=== PATIENT | male | born 1950 | race Caucasian/White ===

== ENCOUNTER 2021-05-28 08:33 | Outpatient (CLI) | payer MEDICARE, SELFPAY | END 2021-05-28 08:34 | disposition home or self-care (01) | LOC: ANHBWCAUD 08:34 | PROVIDERS: PCP Family Medicine; Visit Provider Otolaryngology | DX: H72.91 Unspecified perforation of tympanic membrane, right ear (principal) | CPT/HCPCS: 92557; 92567 ==

== ENCOUNTER 2021-06-17 09:05 | Outpatient (CLI) | payer MEDICARE, SELFPAY ==
--- NOTE | 2021-06-17 09:30 | ECG_ITS ---
Measurements Intervals [place] Rate: 57 P: -7 [place]: 204 QRS: -49 QRSD: 106 T: 64 QT: 438 QTc: 430 Interpretive Statements SINUS BRADYCARDIA BORDERLINE AV CONDUCTION DELAY LEFT ANTERIOR FASCICULAR BLOCK POOR R WAVE PROGRESSION, CONSIDER ANTERIOR INFARCT INFERIOR INFARCT, AGE INDETERMINATE BORDERLINE ST-T WAVE ABNORMALITY- HIGH LATERAL LEADS BASELINE ARTIFACT- I, II, III ABNORMAL ECG Electronically Signed On 06-17-2021 9:54:56 CDT by Ryne Ramirez D.O.
[2021-06-17 09:53] LABS: Prothrombin Time 12.9 Seconds (11.1-14.7)
[2021-06-17 09:54] LABS: Partial Thromboplastin Time 27.5 SECONDS (22.3-36.8)
[2021-06-17 09:59] LABS: Anion Gap 7 mmol/L (8-16); Blood Urea Nitrogen 19 mg/dL (9-20); Calcium 9.1 mg/dL (8.4-10.2); Carbon Dioxide 29 mmol/L (22-30); Chloride 102 mmol/L (98-107); Estimated Glomerular Filt Rate 46; Glucose 96 mg/dL (65-110); Potassium 4.8 mmol/L (3.4-5.0); Sodium 138 mmol/L (137-145)
== END 2021-06-17 09:06 | disposition home or self-care (01) ==
LOC: ANHSURGERY 09:09
PROVIDERS: Anesthesiology; PCP Family Medicine; Visit Provider Otolaryngology
DX: E11.65 Type 2 diabetes mellitus with hyperglycemia (principal); N18.30 Chronic kidney disease, stage 3 unspecified; Z01.818 Encounter for other preprocedural examination; I45.9 Conduction disorder, unspecified; I44.4 Left anterior fascicular block
CPT/HCPCS: 36415; 80048; 85610; 85730; 93005

== ENCOUNTER 2021-06-23 00:56 | Day surgery (SDC) | payer MEDICARE, SELFPAY ==
[2021-06-15 12:39] VITALS: BMI 31.9
--- NOTE | 2021-06-22 05:34 | PM.HPGS ---
History of Present Illness History of Present Illness Consent: Risks, benefits, and alternatives have been discussed and questions answered. Patient agrees to proceed with procedure. 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 is episodes of drainage Review of Systems Review of Systems: All systems reviewed & are unremarkable except as noted in HPI and below PMFSH Past Medical History Medical History BMI 30.0-30.9,adult Chronic kidney disease, stage 3 (moderate) Coronary artery disease Hip pain, left 07/2015 REPLACED Type 2 diabetes mellitus with hyperglycemia Surgical History Surgical History Knee arthropathy (~01/2011) r KNEE REPLACEMENT Family History Family History Mother Hypertension Family history of diabetes mellitus in first degree relative Family history of coronary artery disease Family history of heart disease in male family member before age 55 Grandparent Hypertension Diabetes mellitus Father Family history of malignant neoplasm of stomach Family history of coronary artery disease Sibling Family history of coronary artery disease Carcinoma of colon Other Family history of arthritis Family history of mental disorder Social History Social History Smoking status: Never smoker Second hand tobacco smoke exposure: No Alcohol intake: current Alcohol use details: STATES MAYBE ONE DRINK A MONTH Substance use: never Substance use type: does not use Spiritual care concerns: No Meds Home Medications and Allergies Home Medications Medication Instructions Recorded Confirmed Type aspirin 81 mg tablet,delayed 81 mg PO DAILY 12/01/19 06/15/21 History release insulin aspart U-100 100 unit/mL 20 unit SUB-Q TID 12/01/19 06/15/21 History (3 mL) subcutaneous pen insulin glargine 100 unit/mL (3 30 unit SUB-Q HS ml 06/09/20 06/15/21 History mL) subcutaneous pen clopidogrel 75 mg tablet See Rx Instructions .ROUTE 10/31/20 06/15/21 Rx .COMPLEX #90 tablet carvedilol 6.25 mg tablet 6.25 mg PO Q12H #180 tablet 05/21/21 06/15/21 Rx insulin glargine 20 unit SUBCUT QAM 06/15/21 06/15/21 History rosuvastatin 20 mg PO HS 06/15/21 06/15/21 History Allergies Allergy/AdvReac Type Severity Reaction Status Date / Time niacin Allergy Unknown Itching Verified 06/15/21 12:32 simvastatin Allergy Unknown Joint Pain Verified 06/15/21 12:32 Exam Narrative: Chest clear heart without murmurs abdomen soft right tympanic membrane perforation Assessment and Plan Additional Plan Plan is a right tympanoplasty
--- NOTE | 2021-06-23 05:50 | WPDHPUPDATE1 ---
History and Physical Update Update Date/Time: 06/23/21 05:50 History and Physical has been reviewed, including an updated exam of the patient. There are NO changes in the patient's condition. Risks, benefits, and alternatives have been discussed and questions answered. Patient agrees to proceed with procedure.
[2021-06-23] MEDS: LACTATED RINGERS 1,000 ML 30 ML IV CONT (07:05)
[2021-06-23 07:12] LABS: Glucose Point of Care 176 mg/dl (65-105)
[2021-06-23 07:17] VITALS: BP 112/67; PULSE 61; RESP 18; TEMP 36.6; O2SAT 97
--- NOTE | 2021-06-23 08:08 | WPDANESEPPF ---
Anes - Initial Pre Proc Eval Procedure: Operation Date: 06/23/21 08:30 Proposed Procedures p Right Tympanoplasty - Saurabh Galarza MD Date/Time: 06/23/21 08:08 Surgeon: Saurabh Galarza MD Pre Op Diagnosis: right TM perforation Patient Data Age: 70 Gender: M Height: 1.93 m Weight: 111.7 kg Last Vital Signs Temp 36.6 C 06/23/21 07:17 Pulse 61 06/23/21 07:17 Resp 18 06/23/21 07:17 BP 112/67 06/23/21 07:17 Pulse Ox 97 06/23/21 07:17 Allergies Allergy/AdvReac Type Severity Reaction Status Date / Time niacin Allergy Unknown Itching Verified 06/23/21 07:24 simvastatin Allergy Unknown Joint Pain Verified 06/23/21 07:24 Home Medications Medication Instructions Recorded Confirmed Type aspirin 81 mg tablet,delayed 81 mg PO DAILY 12/01/19 06/23/21 History release insulin aspart U-100 100 unit/mL 20 unit SUB-Q TID 12/01/19 06/23/21 History (3 mL) subcutaneous pen insulin glargine 100 unit/mL (3 30 unit SUB-Q HS ml 06/09/20 06/23/21 History mL) subcutaneous pen clopidogrel 75 mg tablet See Rx Instructions .ROUTE 10/31/20 06/23/21 Rx .COMPLEX #90 tablet carvedilol 6.25 mg tablet 6.25 mg PO Q12H #180 tablet 05/21/21 06/23/21 Rx insulin glargine 20 unit SUBCUT QAM 06/15/21 06/23/21 History rosuvastatin 20 mg PO HS 06/15/21 06/23/21 History Laboratory Tests 06/23/21 07:09 POC Capillary Glucose 176 mg/dl H mg/dl (65-105) Patient hx anesthesia problems: none Family hx anesthesia problems: none PMFSH Past Medical History Medical History BMI 30.0-30.9,adult Chronic kidney disease, stage 3 (moderate) Coronary artery disease Hip pain, left 07/2015 REPLACED LACI (obstructive sleep apnea) Type 2 diabetes mellitus with hyperglycemia Surgical History Surgical History Knee arthropathy (~01/2011) r KNEE REPLACEMENT Family History Family History Mother Hypertension Family history of diabetes mellitus in first degree relative Family history of coronary artery disease Family history of heart disease in male family member before age 55 Grandparent Hypertension Diabetes mellitus Father Family history of malignant neoplasm of stomach Family history of coronary artery disease Sibling Family history of coronary artery disease Carcinoma of colon Other Family history of arthritis Family history of mental disorder Social History Social History Second hand tobacco smoke exposure: No Alcohol intake: current Alcohol use details: STATES MAYBE ONE DRINK A MONTH Substance use: never Substance use type: does not use Living arrangements: with family Spiritual care concerns: No Anes - Eval Final PreProcedure Day of Procedure 06/23/21 08:08 Patient weight: obese Heart: regular rate and rhythm Lungs: clear to auscultation Airway: Mallampati scale class II Neurological: alert and oriented Last oral intake: >/= 8 hours ASA classification: III Emergent: no Anesthetic plan: proceed Anesthesia type and monitoring: general ETT and standard monitoring Informed Consent: The patient's anesthetic plan and its attendant risks and benefits were discussed with the patient/family/POA. Questions were solicited and answers provided to the satisfaction of the patient/family/POA.
[2021-06-23] MEDS: LIDO 1%/EPINEPHRINE 1:100,000 20 ML VIAL 10 ML INFILTRATE (08:43)
[2021-06-23] MEDS: CIPROFLOXACIN HCL 0.3% OP SOLN 2.5 ML BTL 4 DROP EACH EAR (08:44)
[2021-06-23] MEDS: NEOMYCIN/POLYMYXIN B/PRAMOXINE 15 GM CREAM 1 APPLIC TOPICAL (08:44)
--- NOTE | 2021-06-23 09:01 | W.PM.PROC2 ---
Procedure Note - Detailed Date of Procedure 06/23/21 Pre-op Diagnosis right TM perforation Post-op Diagnosis same Procedure Performed Right tympanoplasty Surgeon Saurabh Galarza MD Description of Procedure Patient was prepped and draped usual fashion general anesthesia postauricular region in posterior canal injected xylocaine with adrenaline inspection of the ear revealed a small central perforation and a large mastoid cavity that had obviously been done before I cleaned out the the all the cholesteatoma and debris that was in the mastoid cavity the edges of the perforation was stripped of squamous small straight pick the middle ear packed with Gelfoam and an epi disc placed on top patient awakened returned to recovery in good condition Estimated Blood Loss 5 Drains No Packing No Pathology yes Complications No immediate complications Condition stable Disposition PACU
[2021-06-23 09:06] VITALS: BP 118/71; PULSE 54; RESP 12; TEMP 36.8; O2SAT 100
[2021-06-23 09:20] VITALS: BP 136/72; PULSE 57; RESP 14; O2SAT 100
[2021-06-23 09:20] LABS: Glucose Point of Care 145 mg/dl (65-105)
[2021-06-23 09:35] VITALS: BP 121/64; PULSE 56; RESP 18; O2SAT 96
[2021-06-23 09:47] VITALS: BP 135/72; PULSE 54; RESP 16
== END 2021-06-23 10:15 | disposition home or self-care (01) ==
PROVIDERS: PCP Family Medicine; Visit Provider Otolaryngology
PROC: (CPT 69610; principal; 2021-06-23 08:30)
DX: H72.91 Unspecified perforation of tympanic membrane, right ear (principal); H71.11 Cholesteatoma of tympanum, right ear; Z79.82 Long term (current) use of aspirin; Z79.4 Long term (current) use of insulin; N18.30 Chronic kidney disease, stage 3 unspecified; G47.33 Obstructive sleep apnea (adult) (pediatric); E11.22 Type 2 diabetes mellitus with diabetic chronic kidney disease; E11.65 Type 2 diabetes mellitus with hyperglycemia; E66.9 Obesity, unspecified; Z68.30 Body mass index [BMI] 30.0-30.9, adult
CPT/HCPCS: 69610; 36415; 80048; 82948; 85610; 85730; 88304; 93005; A9270; C1763; J0171; J1100; J2405; J2704; J3010; J7120

== ENCOUNTER 2021-07-18 13:14 | Emergency (ER) | payer MEDICARE, SELFPAY ==
--- NOTE | ~2021-07-18 | XR_ITS ---
EXAMINATION: XR wrist LT min 3V DATE: 07/18/2021 13:30 INDICATION: Radial sided left wrist pain post fall TECHNIQUE: Posteroanterior, ulnar deviation, oblique, and lateral views of the left wrist were obtain ed. 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 Advanced osteoarthritis at the radioscaphoid articulation with remodeling of the scaphoid fossa consistent with secondary scapholunate advanced collapse (SLAC) wrist. Additional severe osteoarthrit is at the triscaphe and first carpal metacarpal joints. Moderate osteoarthritis at the midcarpal, fir st third metacarpophalangeal and first interphalangeal and fifth proximal interphalangeal joints. Loo se osteochondral bodies are seen at the dorsal aspect of the wrist and midcarpal joint spaces. No acu te fractures identified although sensitivity is somewhat decreased by the chronic degenerative change s. IMPRESSION: 1. 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 2. Scapholunate advanced collapse (SLAC) wrist with advanced osteoarthritis at the radioscaphoid shiela culation. Reviewed, dictated and finalized at location A. IMPRESSION: 1. 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 2. 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
[2021-07-18 13:21] VITALS: BP 131/68; PULSE 60; RESP 14; TEMP 36.2; O2SAT 99
--- NOTE | 2021-07-18 13:28 | PC.NURSE ---
PT DECLINED ICE FOR COMFORT
--- NOTE | 2021-07-18 13:29 | ED.UPPEXIN ---
HPI - Extremity Injury (Upper) General Chief Complaint: Extremity Injury, Upper Stated Complaint: Possible injury to left Wrist Time Seen by Provider: 07/18/21 13:29 Source: patient and RN notes reviewed Mode of arrival: ambulatory Limitations: no limitations History of Present Illness HPI narrative: 70-year-old male presents to the the [facility] with complaints of left wrist pain. Patient reports day before arrival he tripped and fell in the yard. Had been trying home treatment. Increased pain, snuffbox tenderness, bruising and swelling noted. Positive radial pulse. Sensation intact in all 5 fingers with capillary refill under 2 seconds. Related Data Home Medications Medication Instructions Recorded Confirmed aspirin 81 mg tablet,delayed 81 mg PO DAILY 12/01/19 07/18/21 release insulin aspart U-100 100 unit/mL 20 unit SUB-Q TID 12/01/19 07/18/21 (3 mL) subcutaneous pen insulin glargine 100 unit/mL (3 30 unit SUB-Q HS ml 06/09/20 07/18/21 mL) subcutaneous pen insulin glargine 20 unit SUBCUT QAM 06/15/21 07/18/21 rosuvastatin 20 mg PO HS 06/15/21 07/18/21 Allergies Allergy/AdvReac Type Severity Reaction Status Date / Time niacin Allergy Unknown Itching Verified 07/18/21 13:42 simvastatin Allergy Unknown Joint Pain Verified 07/18/21 13:42 Review of Systems Review of Systems: All systems reviewed & are unremarkable except as noted in HPI and below Constitutional: Constitutional: Reports no additional constitutional complaints, Denies chills and Denies fever(s) Eyes: Eyes: Reports no additional eye complaints ENT: Reports system reviewed and no additional complaints, except as documented Cardiovascular: Cardiovascular: Reports no additional cardiovascular complaints Respiratory: Respiratory: Reports no additional respiratory complaints Musculoskeletal: Musculoskeletal: Reports as per HPI, Reports arthralgias (Left wrist) and Reports joint swelling (Left wrist) Integumentary/Breasts: Skin/Breast: Reports system reviewed and no additional complaints, except as docu Neurologic: Reports system reviewed and no additional complaints, except as documented Psychiatric: Psychiatric: Reports no additional psychiatric complaints Allergic/Immunologic: Allergic/Immunologic: Reports no additional allergic/immunologic complaints PMFSH Past Medical History Medical History BMI 30.0-30.9,adult Chronic kidney disease, stage 3 (moderate) Coronary artery disease Hip pain, left 07/2015 REPLACED LACI (obstructive sleep apnea) Type 2 diabetes mellitus with hyperglycemia Surgical History Surgical History Knee arthropathy (~01/2011) r KNEE REPLACEMENT Family History Family History Mother Hypertension Family history of diabetes mellitus in first degree relative Family history of coronary artery disease Family history of heart disease in male family member before age 55 Grandparent Hypertension Diabetes mellitus Father Family history of malignant neoplasm of stomach Family history of coronary artery disease Sibling Family history of coronary artery disease Carcinoma of colon Other Family history of arthritis Family history of mental disorder Social History Social History Second hand tobacco smoke exposure: No Alcohol intake: current Alcohol use details: STATES MAYBE ONE DRINK A MONTH Substance use: never Substance use type: does not use Spiritual care concerns: No Comments At the time of my signature, I reviewed and agree with the nursing past medical, surgical, social, and family history. There is no relevant family history pertinent to the patient complaint. Exam Const: General: healthy appearing, no acute distress and alert Nutritional Appearance: well nourished [place]
== END 2021-07-18 14:30 | disposition home or self-care (01) ==
PROVIDERS: Emergency Provider Nurse Practitioner; PCP Family Medicine
DX: S69.92XA Unspecified injury of left wrist, hand and finger(s), initial encounter (principal); W01.0XXA Fall on same level from slipping, tripping and stumbling without subsequent striking against object, initial encounter; E11.22 Type 2 diabetes mellitus with diabetic chronic kidney disease; N18.30 Chronic kidney disease, stage 3 unspecified; I25.10 Atherosclerotic heart disease of native coronary artery without angina pectoris; Z96.642 Presence of left artificial hip joint; G47.33 Obstructive sleep apnea (adult) (pediatric); Z96.641 Presence of right artificial hip joint
CPT/HCPCS: 29125; 73110; 99213; A4565; G0463

== ENCOUNTER 2022-02-08 00:32 | Day surgery (SDC) | payer MEDICARE, SELFPAY ==
[2022-01-28 15:47] VITALS: BMI 31.8
--- NOTE | 2022-02-07 14:32 | PM.HPGS ---
History of Present Illness History of Present Illness Consent: Risks, benefits, and alternatives have been discussed and questions answered. Patient agrees to proceed with procedure. Chief complaint: hx of colon polyps Narrative: Christina Avelar is a 71 year old male referred for colon cancer screening. He had 3 adenomas removed 6 years ago. Review of Systems Review of Systems: All systems reviewed & are unremarkable except as noted in HPI and below PMFSH Past Medical History Medical History (Updated 02/07/22 @ 14:33 by Nikolai Perez MD) BMI 30.0-30.9,adult BMI greater than 30 Chronic kidney disease, stage 3 (moderate) Coronary artery disease Hip pain, left 07/2015 REPLACED Mixed hyperlipidemia LACI (obstructive sleep apnea) Screening for prostate cancer Type 2 diabetes mellitus Type 2 diabetes mellitus with hyperglycemia Surgical History Surgical History Knee arthropathy (~01/2011) r KNEE REPLACEMENT Family History Family History Mother Hypertension Family history of diabetes mellitus in first degree relative Family history of coronary artery disease Family history of heart disease in male family member before age 55 Grandparent Hypertension Diabetes mellitus Father Family history of malignant neoplasm of stomach Family history of coronary artery disease Sibling Family history of coronary artery disease Carcinoma of colon Other Family history of arthritis Family history of mental disorder Social History Social History Smoking status: Never smoker Second hand tobacco smoke exposure: No Alcohol intake: current Alcohol use details: rarely Substance use: never Substance use type: does not use Living arrangements: with family Spiritual care concerns: No Meds Home Medications and Allergies Home Medications Medication Instructions Recorded Confirmed Type aspirin 81 mg tablet,delayed 81 mg PO DAILY 12/01/19 01/28/22 History release insulin aspart U-100 100 unit/mL 20 unit SUB-Q TID 12/01/19 01/28/22 History (3 mL) subcutaneous pen carvedilol 6.25 mg tablet 6.25 mg PO Q12H #180 tablet 01/28/22 01/28/22 Rx clopidogrel 75 mg tablet See Rx Instructions .ROUTE 01/28/22 01/28/22 Rx .COMPLEX #90 tablet insulin glargine 100 unit/mL (3 See Rx Instructions .ROUTE 01/28/22 01/28/22 History mL) subcutaneous pen .COMPLEX ml rosuvastatin 20 mg tablet 20 mg PO HS #90 tablet 01/28/22 01/28/22 Rx Allergies Allergy/AdvReac Type Severity Reaction Status Date / Time niacin Allergy Unknown Itching Verified 01/28/22 15:27 simvastatin Allergy Unknown Joint Pain Verified 01/28/22 15:27 Exam Const: General: alert Orientation/consciousness: patient oriented x3 Resp: Auscultation: clear to auscultation bilaterally Cardio: Rhythm: regular rhythm GI: GI Palp: Yes Soft to palpation and No Tenderness to palpation present (GI) Neuro: General: patient oriented x3 Assessment and Plan Assessment and plan (1) Colon cancer screening: Code(s): Z12.11 - Encounter for screening for malignant neoplasm of colon Status: Acute Assessment and Plan: Colonoscopy with possible biopsy or polypectomy or cautery or injection of substances.
[2022-02-08 08:30] VITALS: BP 120/70; PULSE 59; RESP 18; TEMP 36.1; O2SAT 100
[2022-02-08 08:41] LABS: Glucose Point of Care 123 mg/dl (65-105)
[2022-02-08] MEDS: LACTATED RINGERS 1,000 ML 150 ML IV CONT (08:57)
--- NOTE | 2022-02-08 08:59 | WPDANESEPP ---
Anes - Eval Pre Procedure Procedure: Operation Date: 02/08/22 09:30 Proposed Procedures p Screening Colonoscopy - Nikolai Perez MD Date/Time: 02/08/22 08:59 Pre Op Diagnosis: hx of colon polyps Patient Data Age: 71 Gender: M Height: 1.93 m Weight: 112.1 kg Last Vital Signs Temp 36.1 C L 02/08/22 08:30 Pulse 59 L 02/08/22 08:30 Resp 18 02/08/22 08:30 BP 120/70 02/08/22 08:30 Pulse Ox 100 02/08/22 08:30 Allergies Allergy/AdvReac Type Severity Reaction Status Date / Time niacin Allergy Unknown Itching Verified 02/08/22 08:41 simvastatin Allergy Unknown Joint Pain Verified 02/08/22 08:41 Home Medications Medication Instructions Recorded Confirmed Type aspirin 81 mg tablet,delayed 81 mg PO DAILY 12/01/19 02/08/22 History release insulin aspart U-100 100 unit/mL 20 unit SUB-Q TID 12/01/19 02/08/22 History (3 mL) subcutaneous pen carvedilol 6.25 mg tablet 6.25 mg PO Q12H #180 tablet 01/28/22 02/08/22 Rx clopidogrel 75 mg tablet See Rx Instructions .ROUTE 01/28/22 02/08/22 Rx .COMPLEX #90 tablet insulin glargine 100 unit/mL (3 See Rx Instructions .ROUTE 01/28/22 02/08/22 History mL) subcutaneous pen .COMPLEX ml rosuvastatin 20 mg tablet 20 mg PO HS #90 tablet 01/28/22 02/08/22 Rx Laboratory Tests 02/08/22 08:38 POC Capillary Glucose 123 mg/dl H mg/dl (65-105) Patient hx anesthesia problems: none Family hx anesthesia problems: none Results Review: All pre-operative results and documents have been reviewed as part of the pre-operative evaluation. [facility] Past Medical History Medical History (Updated 02/07/22 @ 14:33 by Nikolai Perez MD) BMI 30.0-30.9,adult BMI greater than 30 Chronic kidney disease, stage 3 (moderate) Coronary artery disease Hip pain, left 07/2015 REPLACED Mixed hyperlipidemia LACI (obstructive sleep apnea) Screening for prostate cancer Type 2 diabetes mellitus Type 2 diabetes mellitus with hyperglycemia Surgical History Surgical History Knee arthropathy (~01/2011) r KNEE REPLACEMENT Family History Family History Mother Hypertension Family history of diabetes mellitus in first degree relative Family history of coronary artery disease Family history of heart disease in male family member before age 55 Grandparent Hypertension Diabetes mellitus Father Family history of malignant neoplasm of stomach Family history of coronary artery disease Sibling Family history of coronary artery disease Carcinoma of colon Other Family history of arthritis Family history of mental disorder Social History Social History Smoking status: Never smoker Second hand tobacco smoke exposure: No Alcohol intake: current Alcohol use details: rarely Substance use: never Substance use type: does not use Living arrangements: with family Spiritual care concerns: No Exam Day of Procedure 02/08/22 08:59 Patient weight: obese Heart: regular rate and rhythm Lungs: clear to auscultation Airway: Mallampati scale class II Neurological: alert and oriented
--- NOTE | 2022-02-08 09:01 | WPDANESEFPP ---
Anes - Eval Final PreProcedure Day of Procedure 02/08/22 09:01 Patient weight: obese Heart: regular rate and rhythm Lungs: clear to auscultation Last oral intake: >/= 8 hours ASA classification: III Emergent: no Anesthetic plan: proceed Anesthesia type and monitoring: general Results Review: All pre-operative results and documents have been reviewed as part of the pre-operative evaluation. Informed Consent: The patient's anesthetic plan and its attendant risks and benefits were discussed with the patient/family/POA. Questions were solicited and answers provided to the satisfaction of the patient/family/POA.
[2022-02-08 09:37] VITALS: BP 83/40; PULSE 61; RESP 20; O2SAT 100
[2022-02-08 09:47] VITALS: BP 108/55; PULSE 54; RESP 22; O2SAT 100
[2022-02-08 09:57] VITALS: BP 116/62; PULSE 52; RESP 18; O2SAT 100
== END 2022-02-08 10:01 | disposition home or self-care (01) ==
PROVIDERS: PCP Family Medicine; Visit Provider Internal Medicine Gastroenterology
PROC: 0DJD8ZZ Inspection of Lower Intestinal Tract, Via Natural or Artificial Opening Endoscopic (ICD-10-PCS; CPT 45378; principal; 2022-02-08 09:30)
DX: Z12.11 Encounter for screening for malignant neoplasm of colon (principal); D12.2 Benign neoplasm of ascending colon; E11.22 Type 2 diabetes mellitus with diabetic chronic kidney disease; N18.30 Chronic kidney disease, stage 3 unspecified; I25.10 Atherosclerotic heart disease of native coronary artery without angina pectoris; E78.2 Mixed hyperlipidemia; G47.33 Obstructive sleep apnea (adult) (pediatric); E66.9 Obesity, unspecified; Z68.30 Body mass index [BMI] 30.0-30.9, adult; Z79.4 Long term (current) use of insulin; Z79.82 Long term (current) use of aspirin; Z79.02 Long term (current) use of antithrombotics/antiplatelets
CPT/HCPCS: 45388; 82948; 88305; J2704; J7120

== ENCOUNTER 2022-03-03 16:44 | Outpatient (CLI) | payer MEDICARE, SELFPAY ==
--- NOTE | ~2022-03-03 | MR_ITS ---
EXAMINATION: MR hip LT wo con DATE: 03/03/2022 17:50 INDICATION: Left hip pain. TECHNIQUE: Magnetic resonance imaging (MRI) of the left hip was performed without intravenous contras t. 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 No fracture. There is severe l umbar spondylosis. The iliopsoas tendons are normal. The visualized portions of the gluteus minimus a nd gluteus medius tendons are normal. There is moderate tendinopathy of the hamstring origins bilater ally. The musculature is unremarkable. IMPRESSION: 1. 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 2. Severe lumbar spondylosis. 3. Moderate tendinopathy of the hamstring origins bilaterally. Reviewed, dictated and finalized at location B.
== END 2022-03-03 16:45 | disposition home or self-care (01) ==
PROVIDERS: PCP Family Medicine; Visit Provider Orthopaedic Surgery
DX: M47.817 Spondylosis without myelopathy or radiculopathy, lumbosacral region (principal); Z96.653 Presence of artificial knee joint, bilateral
CPT/HCPCS: 73721

== ENCOUNTER 2022-03-23 07:25 | Outpatient (CLI) | payer MEDICARE, SELFPAY ==
--- NOTE | ~2022-03-23 | MR_ITS ---
EXAMINATION: MR lumbar spine wo con DATE: 03/23/2022 08:14 INDICATION: Spondylosis without myelopathy or radiculopathy TECHNIQUE: Magnetic resonance imaging (MRI) of the lumbar spine was performed without intravenous con trast. Sequences included sagittal T2-weighted FSE, sagittal T2-weighted FS FSE, sagittal T1-weighted FSE, and axial T2-weighted FSE. COMPARISON: None FINDINGS: 2 mm retrolisthesis L3 on L4, 6 mm retrolisthesis L4 on L5 and 2 mm anterolisthesis L5 on S1. Chronic appearing minimal anterior wedging at L2-L4. There are a few small Schmorl's nodes in the lumbar and lower thoracic spine. There are fibrofatty degenerative endplate changes from L1-L2 through L4-L5. M arrow signal is otherwise normal. Severe disc height loss at L4-L5, moderate disc height loss at L3-L 4 and L5-S1 and mild disc height loss at L1-L2 and L2-L3. There is mild epidural lipomatosis in the m id to lower lumbar spine. [place] disease with degenerative change along the abutting superior and in ferior surfaces of the L2-L5 spinous processes. The conus medullaris terminates at L1-L2. There is no rmal signal in the caudal spinal cord. Paravertebral soft tissues are unremarkable. The following dis c levels are specifically discussed: T12-L1: The disc does not extend beyond the endplate margin. There is mild to moderate bilateral face t joint osteoarthritis. There is no neural foraminal stenosis. There is no central canal stenosis. L1-L2: Disc is mildly bulging. There is mild left and moderate right facet joint osteoarthritis. Ther e is mild bilateral neural foraminal stenosis. There is mild central canal stenosis. L2-L3: Moderate diffuse disc bulge with annular fissure. There is mild left and moderate right facet joint osteoarthritis. There is mild bilateral neural foraminal stenosis. There is mild central canal stenosis. L3-L4: Moderate diffuse disc bulge with annular fissure There is wall to moderate bilateral facet jason nt osteoarthritis. There is moderate bilateral neural foraminal stenosis. There is some anterior bulg ing of the posterior epidural fat which contributes to the mild to moderate central canal stenosis. T he stenosis extends more caudally at the level of the L4 vertebral body due to additional anterolater al epidural lipomatosis. L4-L5: Annular fissure and disc extrusion which extends from foraminal zone to foraminal zone with di sc material which extends caudal to the superior endplate of L5. There is hypertrophy of the ligament um flavum. There is severe left and moderate right facet joint osteoarthritis. There is moderate to s evere bilateral neural foraminal stenosis. There is mild to moderate central canal stenosis. L5-S1: Moderate diffuse disc bulge with annular fissure. There is severe bilateral facet joint osteoa rthritis. Possible left-sided pars interarticularis defect There is left and moderate to severe right neural foraminal stenosis. There is no central canal stenosis. IMPRESSION: 1. Severe lumbar spondylosis along with some epidural lipomatosis in the mid to lower lumbar spine. Reviewed, dictated and finalized at location A.
== END 2022-03-23 07:26 | disposition home or self-care (01) ==
PROVIDERS: PCP Family Medicine; Visit Provider Orthopaedic Surgery
DX: M47.818 Spondylosis without myelopathy or radiculopathy, sacral and sacrococcygeal region (principal)
CPT/HCPCS: 72148

== ENCOUNTER 2023-04-12 08:14 | Outpatient (CLI) | payer MEDICARE, SELFPAY ==
--- NOTE | 2023-04-12 11:00 | NEURO_ITS ---
Impression: # Complains of numbness of lower extremities. Diabetic for over 10 years. 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 # Scarcity of motor unit potentials on needle/EMG exam without fibrillations. Nerve Conduction Studies Anti Sensory Summary Table Stim Site NR Peak (ms) P-T Amp (?V) Site1 Site2 Delta-P (ms) Dist (cm) Kian (m/s) Left Sup Fibular Anti Sensory (Ant Lat Mall) NO RESPONSE 14 cm NR 14 cm Ant Lat Mall 16.0 Right Sup Fibular Anti Sensory (Ant Lat Mall) NO RESPONSE 14 cm NR 14 cm Ant Lat Mall 16.0 Left Sural Anti Sensory (Lat Mall) NO RESPONSE Calf NR Calf Lat Mall 16.0 Right Sural Anti Sensory (Lat Mall) NO RESPONSE Calf NR Calf Lat Mall 16.0 Motor Summary Table Stim Site NR Onset (ms) O-P Amp (mV) Site1 Site2 Delta-0 (ms) Dist (cm) Kian (m/s) Left Peroneal Motor (Vastus Med) Ankle 6.3 1.3 Popit Ankle 14.5 47.0 32 Popit 20.8 1.1 Right Peroneal Motor (Vastus Med) Ankle 6.2 2.2 Popit Ankle 11.6 43.0 37 Popit 17.8 2.6 Left Tibial Motor (Abd Jackson Brev) Ankle 5.9 0.8 Knee Ankle 13.2 49.0 37 Knee 19.1 0.6 Right Tibial Motor (Abd Jackson Brev) Ankle 6.2 1.2 Knee Ankle 14.7 47.0 32 Knee 20.9 0.4 F Wave Studies NR F-Lat (ms) L-R F-Lat (ms) Left Peroneal (Mrkrs) (EDB) 69.94 0.59 Right Peroneal (Mrkrs) (EDB) 70.53 0.59 Left Tibial (Mrkrs) (Abd Hallucis) 70.75 0.35 Right Tibial (Mrkrs) (Abd Hallucis) 70.40 0.35 EMG Side Muscle Nerve Root Ins Act Fibs Amp Dur Recrt Comment Right AntTibialis Dp Br Fibular L4-5 Nml Nml Incr >12ms Reduced Right Gastroc Tibial S1-2 Nml Nml Incr >12ms Reduced Right Fibularis Long Sup Br Fibular L5-S1 Nml Nml Incr >12ms Reduced Right Flex Dig Long Tibial L5-S2 Nml Nml Incr >12ms Reduced Right Ext Dig Brev Dp Br Fibular L5, S1 Nml Nml Incr >12ms Reduced Left AntTibialis Dp Br Fibular L4-5 Nml Nml Incr >12ms Reduced Left Gastroc Tibial S1-2 Nml Nml Incr >12ms Reduced Left Fibularis Long Sup Br Fibular L5-S1 Nml Nml Incr >12ms Reduced Left Flex Dig Long Tibial L5-S2 Nml Nml Incr >12ms Reduced Left Ext Dig Brev Dp Br Fibular L5, S1 Nml Nml Incr >12ms Reduced Right QuadratusFem QuadFemoris L4-5, S1 Nml Nml Incr >12ms Reduced Left QuadratusFem QuadFemoris L4-5, S1 Nml Nml Incr >12ms Reduced MTDD
== END 2023-04-12 08:15 | disposition home or self-care (01) ==
PROVIDERS: PCP Family Medicine; Visit Provider Family Medicine
DX: M79.673 Pain in unspecified foot (principal); R20.2 Paresthesia of skin
CPT/HCPCS: 95886; 95910

== ENCOUNTER 2024-03-08 08:58 | Outpatient (CLI) | payer MEDICARE, SELFPAY ==
--- NOTE | ~2024-03-08 | US_ITS ---
US arterial ankle brachial ind INDICATION: Diabetes. Elevated cholesterol levels. History of coronary artery stent placement. Claudi cation. TECHNIQUE: Segmental pressures and plethysmographic and Doppler waveforms of the brachial and lower e xtremity arteries were obtained. COMPARISON: None. FINDINGS: Right and left brachial artery pressures of 103 mm Hg and 123 mm Hg, respectively, are concordant (no rmal difference <= 30 mmHg). The right ankle-brachial index (DEXTER) is 1.15 (normal >= 0.9-1.0). The right great toe-brachial index (TBI) is 1.16 (normal >= 0.60). The left DEXTER is 1.29. The left TBI is 0.67. IMPRESSION: 1. Normal bilateral ankle-brachial indices. Reviewed, dictated and finalized at location B.
== END 2024-03-08 08:59 | disposition home or self-care (01) ==
PROVIDERS: PCP Family Medicine; Visit Provider Family Medicine
DX: R09.89 Other specified symptoms and signs involving the circulatory and respiratory systems (principal)
CPT/HCPCS: 93922

== ENCOUNTER 2024-06-25 11:24 | Outpatient (CLI) | payer MEDICARE, SELFPAY ==
[2024-06-25 11:45] LABS: Basophils Percent Auto 0.5 % (0.2-1.2); Eosinophils Absolute Auto 0.2 K/mm3 (0-0.3); Eosinophils Percent Auto 2.6 % (0-4.4); Hematocrit 42.7 % (42.0-52.0); Hemoglobin 13.8 g/dL (14.0-18.0); Immature Granulocyte Absolute 0.02 K/mm3 (0.00-0.031); Immature Granulocyte Percent A 0.2 % (0-0.5); Lymphocytes Percent Auto 27.4 % (18.3-44.2); Mean Corpuscular HGB Conc 32.3 g/dl (32-36); Mean Corpuscular Hemoglobin 28.8 pg (26-34); Mean Corpuscular Volume 89.1 fl (80-100); Mean Platelet Volume 8.7 fl (7.4-10.4); Monocytes Absolute Auto 0.9 K/mm3 (0.1-0.6); Monocytes Percent Auto 10.5 % (2.6-8.5); Neutrophils Absolute Auto 4.9 K/mm3 (1.3-6.7); Neutrophils Percent Auto 58.8 % (45.5-73.1); Platelet Count Result 172 k/mm3 (150-375); Red Blood Count 4.79 M/mm3 (4.6-6.20); White Blood Count 8.4 K/mm3 (4.5-10.0)
[2024-06-25 12:42] LABS: Alanine Aminotransferase 23 U/L (6-50); Albumin Level 4.2 g/dL (3.5-5.1); Alkaline Phosphatase 76 U/L (38-126); Anion Gap 10 mmol/L (4-12); Aspartate Amino Transferase 26 U/L (17-59); Bilirubin,Total 0.5 mg/dL (0.2-1.3); Blood Urea Nitrogen 35 mg/dL (9-20); Calcium 9.2 mg/dL (8.4-10.2); Carbon Dioxide 28 mmol/L (22-30); Chloride 98 mmol/L (98-107); Estimated Glomerular Filt Rate 37; Glucose 107 mg/dL (65-110); Potassium 4.5 mmol/L (3.4-5.0); Sodium 136 mmol/L (137-145)
[2024-06-25 12:53] LABS: Immunoglobulin A 370 mg/dL (70-400); Immunoglobulin G 1210 mg/dL (700-1600); Immunoglobulin M 68 mg/dL (40-230)
[2024-06-27 10:03] LABS: Abnormal Protein Band 1 0.4 g/dL (NONE DETECTED); Albumin 3.8 g/dL (3.8-4.8); Alpha 1 Globulin 0.3 g/dL (0.2-0.3); Alpha 2 Globulin 0.8 g/dL (0.5-0.9); Beta 1 Globulin 0.5 g/dL (0.4-0.6); Gamma Globulin 1.2 g/dL (0.8-1.7)
[2024-06-27 11:48] LABS: Kappa\\Lambda Light Chains 1.01 (0.26-1.65); Lambda Light Chain 36.6 mg/L (5.7-26.3)
== END 2024-06-25 11:25 | disposition home or self-care (01) ==
LOC: ANHLAB 11:25
PROVIDERS: PCP Family Medicine; Visit Provider Internal Medicine Hematology & Oncology
DX: D72.9 Disorder of white blood cells, unspecified (principal)
CPT/HCPCS: 36415; 80053; 82784; 83883; 84155; 84165; 85025

== ENCOUNTER 2024-12-03 10:19 | Outpatient (CLI) | payer MEDICARE, SELFPAY ==
[2024-12-03 10:46] LABS: Basophils Absolute Auto 0.1 K/mm3 (0.0-0.1); Basophils Percent Auto 0.6 % (0.2-1.2); Eosinophils Absolute Auto 0.4 K/mm3 (0-0.3); Eosinophils Percent Auto 5.1 % (0-4.4); Hematocrit 40.3 % (42.0-52.0); Hemoglobin 12.6 g/dL (14.0-18.0); Immature Granulocyte Absolute 0.02 K/mm3 (0.00-0.031); Immature Granulocyte Percent A 0.2 % (0-0.5); Lymphocytes Absolute Auto 1.93 K/mm3 (0.9-3.2); Lymphocytes Percent Auto 23.7 % (18.3-44.2); Mean Corpuscular HGB Conc 31.3 g/dl (32-36); Mean Corpuscular Hemoglobin 28.2 pg (26-34); Mean Corpuscular Volume 90.2 fl (80-100); Mean Platelet Volume 8.6 fl (7.4-10.4); Monocytes Absolute Auto 0.9 K/mm3 (0.1-0.6); Monocytes Percent Auto 11.2 % (2.6-8.5); Neutrophils Absolute Auto 4.8 K/mm3 (1.3-6.7); Neutrophils Percent Auto 59.2 % (45.5-73.1); Platelet Count Result 167 k/mm3 (150-375); Red Blood Count 4.47 M/mm3 (4.6-6.20); Red Cell Distribution Width 13.5 % (11.5-14.5); White Blood Count 8.2 K/mm3 (4.5-10.0)
[2024-12-03 11:24] LABS: Alanine Aminotransferase 26 U/L (6-50); Albumin Level 4.1 g/dL (3.5-5.1); Alkaline Phosphatase 86 U/L (38-126); Anion Gap 8 mmol/L (4-12); Aspartate Amino Transferase 34 U/L (17-59); Bilirubin,Total 0.6 mg/dL (0.2-1.3); Blood Urea Nitrogen 21 mg/dL (9-20); Calcium 9.3 mg/dL (8.4-10.2); Carbon Dioxide 27 mmol/L (22-30); Chloride 103 mmol/L (98-107); Estimated Glomerular Filt Rate 56; Glucose 111 mg/dL (65-110); Potassium 5.2 mmol/L (3.4-5.0); Sodium 138 mmol/L (137-145)
[2024-12-03 11:32] LABS: Alanine Aminotransferase 25 U/L (6-50); Albumin Level 4.1 g/dL (3.5-5.1); Alkaline Phosphatase 85 U/L (38-126); Anion Gap 7 mmol/L (4-12); Aspartate Amino Transferase 53 U/L (17-59); Bilirubin,Total 0.5 mg/dL (0.2-1.3); Blood Urea Nitrogen 21 mg/dL (9-20); Calcium 9.1 mg/dL (8.4-10.2); Carbon Dioxide 30 mmol/L (22-30); Chloride 102 mmol/L (98-107); Cholesterol 86 mg/dL (0-200); Estimated Glomerular Filt Rate 56; Glucose 112 mg/dL (65-110); HDL Direct 31 mg/dL; Potassium 5.1 mmol/L (3.4-5.0); Sodium 139 mmol/L (137-145); Triglycerides 111 mg/dL (<150)
[2024-12-03 11:38] LABS: Immunoglobulin A 422 mg/dL (70-400); Immunoglobulin G 1508 mg/dL (700-1600); Immunoglobulin M 63 mg/dL (40-230)
[2024-12-03 11:47] LABS: LDL Cholesterol Direct < 30 mg/dL
[2024-12-03 11:55] LABS: Prostate Specific Antigen 0.3 ng/mL (< OR = 4.0)
[2024-12-04 13:33] LABS: Lambda Light Chain 50.4 mg/L (5.7-26.3)
[2024-12-04 13:43] LABS: Protein, Total 7.2 g/dL (6.1-8.1)
[2024-12-10 21:34] LABS: Abnormal Protein Band 1 0.5 g/dL (NONE DETECTED); Albumin 3.6 g/dL (3.8-4.8); Alpha 1 Globulin 0.3 g/dL (0.2-0.3); Alpha 2 Globulin 0.8 g/dL (0.5-0.9); Beta 1 Globulin 0.5 g/dL (0.4-0.6); Gamma Globulin 1.4 g/dL (0.8-1.7)
== END 2024-12-03 10:20 | disposition home or self-care (01) ==
LOC: ANHLAB 10:23
PROVIDERS: PCP Family Medicine; Visit Provider Internal Medicine Hematology & Oncology
DX: Z12.5 Encounter for screening for malignant neoplasm of prostate (principal); N40.1 Benign prostatic hyperplasia with lower urinary tract symptoms; D72.9 Disorder of white blood cells, unspecified; E78.2 Mixed hyperlipidemia; G62.9 Polyneuropathy, unspecified; N18.31 Chronic kidney disease, stage 3a; N13.8 Other obstructive and reflux uropathy; Z13.220 Encounter for screening for lipoid disorders
CPT/HCPCS: 36415; 80048; 80053; 80061; 80076; 82607; 82784; 83883; 84153; 84155; 84165; 85025; G0103

== ENCOUNTER 2025-09-13 10:23 | Outpatient (CLI) | payer MEDICARE, SELFPAY ==
[2025-09-13 10:41] LABS: Hematocrit 43.2 % (42.0-52.0); Hemoglobin 13.8 g/dL (14.0-18.0); Immature Granulocyte Percent A 0.3 % (0-0.5); Lymphocytes Absolute Auto 1.89 K/mm3 (0.9-3.2); Mean Corpuscular HGB Conc 31.9 g/dl (32-36); Mean Corpuscular Hemoglobin 28.3 pg (26-34); Mean Corpuscular Volume 88.5 fl (80-100); Nucleated Red Blood Cells Absolute Auto 0.000 K/mm3 (0.0-0.012); Nucleated Red Blood Cells Perc 0.0 % (0.0-0.2); Platelet Count Result 154 k/mm3 (150-375); Red Blood Count 4.88 M/mm3 (4.6-6.20); White Blood Count 6.9 K/mm3 (4.5-10.0)
--- OUTSIDE RECORDS SUMMARY | 2025-09-13 10:54 | XMS_ITS | Clinical Summary ---
Author Organization [facility] Address [address] [place] [id number] Phone Care Team Providers Care Security Delivery Specialist Name Role Phone Jhon José MD Primary Care Provider [phone] Allergies Active Allergy Reactions Criticality Noted Date Comments Niacin-Simvastatin Er Unknown Medications carvedilol (COREG) 6.25 MG tablet 1 tab/cap bid 3 Active clopidogrel (PLAVIX) 75 MG tablet 1 tab/cap qday 3 Active fenofibrate (TRICOR) 145 MG tablet 1 tab/cap qday 3 Active aspirin (ST MICHELLE) 81 MG EC tablet 1 tab/cap qday 3 Active Linagliptin (TRADJENTA) 5 MG tablet 1 tab/cap qday 3 Active rosuvastatin (CRESTOR) 20 MG tablet 1 tab/cap qday 3 Active insulin glargine (LANTUS) 100 UNIT/ML injection as directed 4 Active insulin aspart (NovoLOG FLEXPEN) 100 UNIT/ML injection Novolog Flexpen U-100 Insulin aspart 100 unit/mL (3 mL) subcutaneous Active traZODone (DESYREL) 50 MG tablet trazodone 50 mg tablet Active triamcinolone (KENALOG) 0.1 % ointment triamcinolone acetonide 0.1 % topical ointment Active Farxiga 5 MG tablet Take 1 tablet by mouth 1 (one) time each day 2 Active Active Problems Problem Noted Date Diagnosed Date Coronary arteriosclerosis 10/16/2020 Angina pectoris 05/01/2019 Heartburn 05/01/2019 Hypertensive chronic kidney disease with stage 1 through stage 4 chronic kidney disease, or unspecified chronic kidney disease 11/18/2015 Disease type AND/OR category unknown 05/28/2014 Overview (10/08/2019): STATUS-POST PTCA Type 2 diabetes mellitus 03/30/2014 Overview (10/08/2019): DMII WO CMP NT ST UNCNTR Chronic kidney disease, stage 3 (moderate) 02/12 Chronic kidney disease 09/22/2013 Essential (primary) hypertension 09/22/2013 Type 2 diabetes mellitus wit h other diabetic kidney complication 09/22/2013 Other hyperlipidemia 09/22/2013 Overview (01/27/2019): Converted unresolved ICD9, potential mismatch. Atherosclerotic heart diseas e of [place] coronary artery without angina pectoris 09/22/2013 Other polyosteoarthritis 09/22/2013 Immunizations Immunization Administration Dates Next Due Fluzone High-Dose 07/15/2020 Influenza TIV (IM) 11/19/2015,10/07/2014 Influenza, Injectable, Quadrivalent 08/08/2019 Influenza, Unspecified 07/15/2015 Pneumococcal Conjugate 13-Valent 11/19/2015 Sars-cov-2, Unspecified 02/18/2021,01/18/2021 Zoster 11/19/2015 Family History Medical History Relation Comments Coronary arteriosclerosis Father Malignant neoplastic disease Father Coronary arteriosclerosis Mother Diabetes mellitus Mother Hypertensive disorder Mother Coronary arteriosclerosis Sibling Kidney disease Neg Hx Kidney stone Neg Hx Relation Status Comments Father Mother Sibling Social History Tobacco Use Types Packs/Day Years Used Date Smoking Tobacco: Never Smokeless Tobacco: Never Alcohol Use Standard Drinks/Week Comments No 0 (1 standard drink = 0.6 oz pur e alcohol) Sex and Gender Information Value Date Recorded Sex Assigned at Not on file Legal Sex Male 8:48 AM MST Gender Identity Not on file Sexual Orientation Not on file Last Filed Vital Signs Vital Sign Reading Time Taken Comments Blood Pressure 128/68 08/09/2022 9:37 AM CDT Pulse - - Temperature 36.1 C (97 F) 08/09/2022 9:37 AM CDT Respiratory Rate 18 08/09/2022 9:37 AM CDT Oxygen Saturation - - Inhaled Oxygen Concentration - - Weight 117 kg (258 lb) 08/09/2022 9:37 AM CDT Height 193 cm (6' 4) 08/09/2022 9:37 AM CDT Body Mass Index 31.4 08/09/2022 9:37 AM CDT Plan of Treatment Health Maintenance Due Date Last Done Comments Pneumococcal PPSV23/PCV13 65 + Years / Low and Medium Risk (2 of 3 - PCV20 or PCV21) 11/19/2016 11/19/2015 Influenza Vaccine (#1) 2025 6, 07/15/2015, 10/07/2014 Insurance [employer] MEDICARE Care Teams Security Delivery Specialist Relationship Specialty Start Date End Date Jhon José MD [address] [place] [address] PCP - General Family Medicine 04/03/19
--- OUTSIDE RECORDS SUMMARY | 2025-09-13 10:54 | XMS_ITS | Encounter Summary ---
Author Organization [facility] Address [address] [place] [address] Care Team Providers Care Charter Representative Name Role Phone Jhon José MD Primary Care Provider [phone] Encounter Details Date Type Department Care Team (Late st Contact Info) Description 09/11/2025 External Device Data ST[facility] ABSTRACTION Provider, Abstract NO ADDRESS ON FILE Social History Tobacco Use Types Packs/Day Years Used Date Smoking Tobacco: Some Days Cigars Smokeless Tobacco: Never Alcohol Use Standard Drinks/Week Comments Yes 0 (1 standard drink = 0.6 oz pur e alcohol) Sex and Gender Information Value Date Recorded Sex Assigned at Male 08/06/2024 1:38 PM CDT Legal Sex Male 10:03 AM CDT Gender Identity Male 08/06/2024 1:38 PM CDT Sexual Orientation Straight 08/06/2024 1: 38 PM CDT documented as of this encounter Plan of Treatment Upcoming Encounters Date Type Department Care Team (Late st Contact Info) Description 09/16/2025 10:15 AM NURSERY SUPERVISOR Office Visit [facility] Oncology and Hematology - [address] [place] [address] Bryan Gtz MD [address] [facility] [address] [place] [address] documented as of this encounter Visit Diagnoses Not on filedocumented in this encounter Care Teams Charter Representative Relationship Specialty Start Date End Date Jhon José MD [address] [place] [address] PCP - General Family Practice 04/08/22 documented as of this encounter
--- OUTSIDE RECORDS SUMMARY | 2025-09-13 10:54 | XMS_ITS | Clinical Summary ---
Author Organization [facility] Address [address] [place] [address] Care Team Providers Care [employer] Art[employer] Crewmember Name Role Phone Jhon José MD Primary Care Provider [phone] Allergies No known active allergies Medications rosuvastatin (CRESTOR) 20 mg tablet 09/04/2014Crestor, po solid 20 mg TabletPOdailyCurrent Medication 09/04/20 14 Active carvedilol (COREG) 6.25 mg tablet 09/04/2014Carvedilol, po solid 6.25 mg TabletPOBIDCurrent Medication 09/04/20 14 Active insulin glargine (LANTUS SOLOSTAR U-100 INSULIN) 100 unit/mL (3 mL) insulin pen 09/04/2014Lantus solostar, inj 100/ml (3) Insulin pen (ml)sub-Qas directedCurrent Medication 09/04/20 14 Active clopidogrel (PLAVIX) 75 mg tablet 09/04/2014Plavix, po solid 75 mg TabletPOdailyCurrent Medication 09/04/20 14 Active aspirin 81 MG oral suspension 09/04/2014spirin, po solid 81 mg Tablet, delayed release (enteric coated)POdailyCurrent Medication 09/04/20 14 Active mupirocin (BACTROBAN) 2 % creamIndicati ons:peritonea l dialysis catheter care Apply topically 3 (three) times a day 15 g 04/20/20 25 Active Active Problems Problem Noted Date Diagnosed Date Post percutaneous transluminal coronary angiopla sty 05/28/2014 Overview (02/17/2017): STATUS-POST PTCA Coronary arteriosclerosis in [place] artery 03/30 Overview (02/16/2017): CRNRY ATHRSCL NATVE VSSL 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 Overview (02/16/2017): MIXED HYPERLIPIDEMIA Hypertension 03/30/2014 Overview (02/18/2017): HYPERTENSION NOS Type 2 diabetes mellitus 03/30/2014 Overview (02/18/2017): DMII WO CMP NT ST UNCNTR Surgical History Surgery Date Site/Laterality Comments OTHER SURGICAL HISTORY Arthroscopic Surgery Left Knee OTHER SURGICAL HISTORY Rt ear infection TOTAL KNEE ARTHROPLASTY 2010 Bilateral Total Knee Replacement Medical History Medical History Date Comments Diabetes Family History Medical History Relation Name Comments Stomach cancer Father 2 gastric cance r; Cause of : gastric cancer Heart attack Mother 2 [place]; Cause of De ath: [place] Relation Name Status Comments Father 1 (Age 82) Father 2 Mother 1 (Age 65) Mother 2 Social History Tobacco Use Types Packs/Day Years Used Date Smoking Tobacco: Never Smokeless Tobacco: Never Alcohol Use Standard Drinks/Week Comments No 0 (1 standard drink = 0.6 oz pur e alcohol) Personal Safety Answer Date Recorded Have you ever been in or are you currently in a harmful physical or emotional relationship or is someone making you feel afraid or unsafe? 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 Gender Identity Not on file Sexual Orientation Not on file Obstetrics History Last Filed Vital Signs Vital Sign Reading Time Taken Comments Blood Pressure 134/75 04/20/2025 12:56 AM CDT Pulse 64 04/20/2025 4:55 AM CDT Temperature 36.5 C (97.7 F) 04/20/2025 12:56 AM CDT Respiratory Rate 18 04/20/2025 4:55 AM CDT Oxygen Saturation 98% 04/20/2025 4:55 AM CDT Inhaled Oxygen Concentration - - Weight 91.8 kg (202 lb 4.8 oz) 04/20/2025 12:56 AM CDT Height 190.5 cm (6' 3) 04/20/2025 12:56 AM CDT Body Mass Index 25.29 04/20/2025 12:56 AM CDT Plan of Treatment Health Maintenance Due Date Last Done Comments Albumin Creatinine Ratio, Urine 1948 Depression Screening 1948 Fall Risk Assessment 1948 Hemoglobin A1C 1948 Hepatitis C Screening 1948 Dilated Eye Exam 1948 Foot Exam 1948 Lipid Panel 1948 DTaP/Tdap/Td Vaccine (1 - Tdap) 1959 Hepatitis B Screening 1966 Well Visit 65+ 2013 Covid-19 Vaccine ( season) 2025 07/17/2024, 08/05/2023, 09/09/2022, Additional history exists Influenza Vaccine (#1) 2025 , 08/05/2023, 07/13/2021, Additional history exists eGFR 04/20/2026 04/20/2025 Zoster Vaccine Completed 05/29/2018, 06/2018, 11/19/2015 Pneumococcal vaccine 65+ Completed 07/28/2018, 04/2016 Procedures Procedure Name Priority Date/Time Associated Diagnosis Comments EGFR STAT 04/20/2025 12:56 AM CDT from Last 3 Months or Most Recently Relevant to Health Maintenance Results * (ABNORMAL) eGFR (04/20/2025 12:56 AM CDT) eGFR 54(L) >=60 mL/min/1. 73 m2 Comment: Interpretive Data Reference Interval Normal >/= 90 mL/min/1.73m2 Mildly decreased* 60 - 89 mL/min/1.73m2 Mildly to moderately decreased 45 - 59 mL/min/1.73m2 Moderately to severely decreased 30 - 44 mL/min/1.73m2 Severely decreased 15 - 29 mL/min/1.73m2 Kidney Failure < 15 mL/min/1.73m2 *Relative to young adult level Estimated glomerular filtration rate is determined by the 2020 CKD-EPI equation recommended by the National Kidney Foundation (A Unifying Approach to GFR Estimation: Recommendations of the NKF-ASK Task Force on Reassessing the Inclusion of Race in Diagnosing Kidney Disease, JASN 2020). The CKD-EPI equation should not be used for patients with unstable renal function and has not been validated in children and those over 70. Current interpretive data was last reviewed 2021. Blood 04/20/2025 12:5 6 AM CDT 04/20/2025 1:44 AM CDT Benja Mecrado MD LAB BLOOD ORDERABLES Final Re sult [facility] ([place] Department [place] [address] from Last 3 Months or Most Recently Relevant to Health Maintenance Insurance [facility] MEDICARE ADVANTAGE MEDICARE ADVANTAGE Care Teams Light [employer] Defense Artillery Crewmember Relationship Specialty Start Date End Date Jhon José MD PCP - General 04/06/12
--- OUTSIDE RECORDS SUMMARY | 2025-09-13 10:54 | XMS_ITS | Clinical Summary ---
Author Organization [facility] Address [address] [place] [address] Phone Care Team Providers Care Ssds Mk 2 Advanced Operator Name Role Phone Jhon José MD Primary Care Provider Allergies No known active allergies Medications rosuvastatin (CRESTOR) 20 mg tablet Take 20 mg by mouth daily. Active clopidogreL (PLAVIX) 75 mg Tablet Take 75 mg by mouth daily. Active carvediloL (COREG) 6.25 mg tablet Take 6.25 mg by mouth 2 times daily with meals. Active insulin glargine (LANTUS) 100 unit/mL pen syringe Inject by subcutaneous injection 2 times daily. 17mm & 25mm Active insulin aspart (NovoLOG) 100 unit/mL injection Inject by subcutaneous injection 3 times daily. 17mm. Active dapagliflozin (FARXIGA) 5 mg Tablet Take 1 Tablet by mouth daily. Active gabapentin (NEURONTIN) 300 mg capsule Take 300 mg by mouth. 3 Active finasteride (PROSCAR) 5 mg tablet Take 5 mg by mouth daily. Active insulin pen device aspart (NovoLOG) 100 unit/mL Insulin Pen by Does not apply route see administration instructions. 10mm per meal Active insulin degludec (Tresiba FlexTouch U-100) 100 unit/mL pen syringe Inject by subcutaneous injection. 40mm Active Active Problems No known active problems Encounters Date Type Department Care Team Description 09/11/2025 External Device Data STL ABSTRACTION Provider, Abstract 09/10/2025 External Device Data STL ABSTRACTION Provider, Abstract 09/10/2025 External Device Data STL ABSTRACTION Provider, Abstract 09/10/2025 External Device Data STL ABSTRACTION Provider, Abstract 08/30/2025 Abstract [facility] Oncology and Hematology - [place] [address] [place] [address] Bryan tGz MD 07/16/2025 External Device Data STL ABSTRACTION Provider, Abstract 07/02/2025 External Device Data STL ABSTRACTION Provider, Abstract from Last 3 Months Family History Medical History Relation Name Comments Heart Disease Brother 1 Colon Cancer Brother 2 Other Father Smoker Stomach Cancer Father No Known Problems Maternal Grandfather High Cholesterol Maternal Grandmother Hypertension Mother No Known Problems Paternal Grandfather Diabetes Paternal Grandmother Relation Name Status Comments Brother 1 Brother 2 Alive Father Maternal Grandfather Maternal Grandmother Mother Paternal Grandfather Paternal Grandmother Social History Tobacco Use Types Packs/Day Years Used Date Smoking Tobacco: Some Days Cigars Smokeless Tobacco: Never Tobacco Cessation:Ready to Q uit: Not Asked; Counseling Given: Not Answered Alcohol Use Standard Drinks/Week Comments Yes 0 (1 standard drink = 0.6 oz pur e alcohol) Sex and Gender Information Value Date Recorded Sex Assigned at Male 08/06/2024 1:38 PM CDT Legal Sex Male 10:03 AM CDT Gender Identity Male 08/06/2024 1:38 PM CDT Sexual Orientation Straight 08/06/2024 1: 38 PM CDT Last Filed Vital Signs Vital Sign Reading Time Taken Comments Blood Pressure 134/81 12/13/2024 10:00 AM NIGHT PATROL INSPECTOR Pulse 62 12/13/2024 10:00 AM NIGHT PATROL INSPECTOR Temperature 35.7 C (96.3 F) 12/13/2024 10:00 AM NIGHT PATROL INSPECTOR Respiratory Rate 16 12/13/2024 10:0 0 AM NIGHT PATROL INSPECTOR Oxygen Saturation 94% 12/13/2024 10: 00 AM NIGHT PATROL INSPECTOR Inhaled Oxygen Concentration - - Weight 96.2 kg (212 lb) 12/13/2024 10:0 0 AM NIGHT PATROL INSPECTOR Patient stated this is the correct weight Height 193 cm (6' 4) 06/25/2024 10:22 AM CDT Body Mass Index 25.81 06/25/2024 10:22 AM CDT Plan of Treatment Upcoming Encounters Date Type Department Care Team (Late st Contact Info) Description 09/16/2025 10:15 AM NIGHT PATROL INSPECTOR Office Visit [facility] Oncology and Hematology - [place] [address] [facility] [address] [place] [address] Bryan Gtz MD [address] [facility] [address] [place] [address] Health Maintenance Due Date Last Done Comments DIABETES ANNUAL FOOT EXAM 1966 DIABETES ANNUAL RETINAL EXAM 1966 DIABETES MICROALBUMIN ANNUAL SCREEN 1966 LDL CHOLESTEROL ANNUAL 1966 DTAP/TDAP/TD VACCINES (1 - Tdap) 1967 PNEUMOCOCCAL VACCINE 50+ YEA RS (2 of 2 - PPSV23, PCV20, or PCV21) 01/14/2016 11/19/2015 ZOSTER VACCINE (3 of 3) 07/28/2018 06/02/2018, 11/19 DIABETES HBA1C Q 6 MONTHS 06/20/2022 12/21/2021 RSV VACCINE (60+ or ) (1 - 1-dose 75+ series) 2023 Medicare Advantage ([place]) Preventative Visit/Annual Wellness Visit 11/14/2024 INFLUENZA VACCINE (#1) 2025 4, 08/08/2019, 08/08/2019, Additional history exists Insurance Care Teams Ssds Mk 2 Advanced Operator Relationship Specialty Start Date End Date Jhon José MD [address] [place] [address] PCP - General Family Practice 04/08/22
--- OUTSIDE RECORDS SUMMARY | 2025-09-13 10:54 | XMS_ITS | Patient Health Record ---
Author Organization [facility] Address [address] [address] Care Team Providers Care Line Supply Name Role Phone JEROME RIVERA Primary Care Provider TACHO Wilkinson Unavailable [phone] Brittanie Au MD Unavailable Unavailable Allergies No Known Allergies Reason For Referral No Information Medications Medication SIG (Take, Route, Frequency, Duration) Notes Start Date End Date Status Carvedilol 6.25 MG 1 tablet with food Orally Twice a day; Duration: 30 day(s) Active Rosuvastatin Calcium 20 MG 1 tablet Orally Once a day; Duration: 30 day(s) Active Plavix 75 MG 1 tablet Orally Once a day; Duration: 30 day(s) Active NovoLOG 100 UNIT/ML as directed Injection Active Valium 10 MG 1 tablet IF NEEDED Orally TAKE ONE HOUR PRIOR TO PROCEDURE; Duration: 1 days 05/09/2025 Not-Taking Finasteride 1 MG 1 tablet Orally Once a day Active Tresiba 100 UNIT/ML as directed Subcutaneous Active Farxiga 5 MG 1 tablet Orally Once a day; Duration: 30 day(s) Active Problems Problem Type SNOMED Code ICD Code Onset Dates Problem Status W/U Status Risk Notes Problem Sacroiliitis (47957387) Sacroiliitis (M46.1) Active confirmed Problem Cervical radiculopathy (12315631) Cervical radiculopathy (M54.12) Active confirmed Problem Lumbar spondylosis (442271125) Lumbar spondylosis (M47.816) Active confirmed Problem Cervical spondylosis (392872465) Cervical spondylosis (M47.812) Active confirmed Problem Myofascial pain (152882201) Myofascial pain (M79.18) Active confirmed Vital Signs Heart Rate 73 /min 06/17/2025 Temperature 98.6 degrees Fahrenheit 06/17/2025 Blood pressure diastolic 76 mm Hg 06/17/2025 Height 76 in 06/17/2025 Blood pressure systolic 108 mm Hg 06/17/2025 Weight 250 lbs 06/17/2025 BMI 30.43 kg/m2 06/17/2025 Encounters Encounter Location Date Provider Diagnosis [facility] [address] [phone] 12/04/2024 TACHO AHMAD Sacroiliitis M46.1 [facility] [address] [phone] 12/11/2024 TACHO AHMAD Sacroiliitis M46.1 [facility] [address] [address] 12/25/2024 TACHO AHMAD Sacroiliitis M46.1 a nd Myofascial pain M79.18 [facility] [address] [address] 12/31/2024 TACHO AHMAD Myofascial pain M79. 18 [facility] [address] [phone] 02/06/2025 TACHO AHMAD Myofascial pain M79. 18 and Cervical radiculopathy M54.12 [facility] [address] [address] 03/18/2025 TACHO AHMAD Cervical spondylosis M47.812 and Sacroiliitis M46.1 [facility] [address] [address] 03/26/2025 TACHO AHMAD Sacroiliitis M46.1 [facility] [address] [address] 04/18/2025 TACHO AHMAD Cervical spondylosis M47.812 [facility] [address] [address] 05/07/2025 TACHO AHMAD Cervical spondylosis M47.812 [facility] [address] [address] 05/14/2025 TACHO AHMAD Cervical spondylosis M47.812 [facility] [address] [address] 06/17/2025 TACHO AHMAD Cervical spondylosis M47.812 [facility] [address] [address] 02/08/2025 TACHO AHMAD [facility] [address] [address] 05/09/2025 TACHO AHMAD Assessments Encounter Date Diagnosis (ICD Code) Assessment Notes Treatment Notes Treatment Clinical Notes Section Notes 12/04/2024 Sacroiliitis (ICD-10 - M46.1) On 05/15/24, we did the left sacroiliac joint injection with significant pain relief. On 06/04/22 and 10/19/22, we did the left sacroiliac joint injection with near resolution of symptoms. On 12/06/23, we did the left sacroiliac joint injection with >80% relief of lower back pain. Pt with recurrent intermittent pain, which compromises his completion of his ADLs when pain is severe. As he has had good relief from previous injections and his pain follows the same pattern as previous pain episodes, will repeat his LEFT sacroiliac joint injection for pain relief. Pt is on Plavix and have suggested pt to stop 5 days prior to the procedure. The previous therapeutic sacroiliac joint injection provided >80% relief of pain for atleast 3 months and improvement of ADL's. That also confirms the diagnosis of sacroiliitis. The patient is interested in repeating the procedure. All the pros and cons of the procedure were discussed with the patient. The risk of infection, bleeding, and pain were discussed with the patient. All questions were answered. The patient wants to proceed with the procedure. The procedure will be completed under fluoroscopy in the office with no sedation The patient was recommended to take back precautions, and to avoid any heavy lifting, pushing and pulling activities, especially bending and rotation. And also avoid activities that aggravate the pain. We also recommend the patient to do daily exercises to improve abdominal strength and stretching of the hamstring and ITB muscles. The patient will wear appropriate shoewear when walking on hard surfaces. The patient has clinical evidence of LEFT sacroiliitis with pain located between the upper level of the iliac crests and the gluteal fold at the LEFT sacroiliac joint. The patients pain was reproducible with provocative testing including the thigh thrust, Gaenslens test, sacroiliac joint compression and LAUREL testing. The patient has tenderness to palpation over the sacroiliac joints. The patient does not have any neurological changes on exam and has no evidence of radicular symptoms. The patients pain has consistently been 5/10 and has not responded to >6 weeks of conservative treatment including chiropractic, physical therapy or prescribed home exercise program. The patient has failed NSAID's >3 weeks and has modified their activity >6 weeks without relief of symptoms. The clinical findings do not indicate any other possible diagnosis. 12/11/2024 Sacroiliitis (ICD-10 - M46.1) On 05/15/24, we did the left sacroiliac joint injection with significant pain relief. On 06/04/22 and 10/19/22, we did the left sacroiliac joint injection with near resolution of symptoms. On 12/06/23, we did the left sacroiliac joint injection with >80% relief of lower back pain. Pt with recurrent intermittent pain, which compromises his completion of his ADLs when pain is severe. As he has had good relief from previous injections and his pain follows the same pattern as previous pain episodes, will repeat his LEFT sacroiliac joint injection for pain relief. Pt is on Plavix and have suggested pt to stop 5 days prior to the procedure. The previous therapeutic sacroiliac joint injection provided >80% relief of pain for atleast 3 months and improvement of ADL's. That also confirms the diagnosis of sacroiliitis. The patient is interested in repeating the procedure. All the pros and cons of the procedure were discussed with the patient. The risk of infection, bleeding, and pain were discussed with the patient. All questions were answered. The patient wants to proceed with the procedure. The procedure will be completed under fluoroscopy in the office with no sedation The patient was recommended to take back precautions, and to avoid any heavy lifting, pushing and pulling activities, especially bending and rotation. And also avoid activities that aggravate the pain. We also recommend the patient to do daily exercises to improve abdominal strength and stretching of the hamstring and ITB muscles. The patient will wear appropriate shoewear when walking on hard surfaces. The patient has clinical evidence of LEFT sacroiliitis with pain located between the upper level of the iliac crests and the gluteal fold at the LEFT sacroiliac joint. The patients pain was reproducible with provocative testing including the thigh thrust, Gaenslens test, sacroiliac joint compression and LAUREL testing. The patient has tenderness to palpation over the sacroiliac joints. The patient does not have any neurological changes on exam and has no evidence of radicular symptoms. The patients pain has consistently been 5/10 and has not responded to >6 weeks of conservative treatment including chiropractic, physical therapy or prescribed home exercise program. The patient has failed NSAID's >3 weeks and has modified their activity >6 weeks without relief of symptoms. The clinical findings do not indicate any other possible diagnosis. 12/25/2024 Sacroiliitis (ICD-10 - M46.1) The patient presents in office for lower back pain and neck pain (new complaint) On 12/11/24 we did a Left sacroiliac joint steroid injection and patient reports 100% ongoing pain relief. He is able to sit for longer periods of time, stand and walk without pain. Denies any bilateral lower extremity pain or paresthesias.Overal l, significantly improved from injection. He has had previous physical therapy and He continues his stretching exercises at home. The patient was recommended to take back precautions, and to avoid any heavy lifting, pushing and pulling activities, especially bending and rotation. And also avoid activities that aggravate the pain. We also recommend the patient to do daily exercises to improve abdominal strength and stretching of the hamstring and ITB muscles. The patient will wear appropriate shoewear when walking on hard surfaces. 12/25/2024 Myofascial pain (ICD-10 - M79.18) He states he has constant, chronic, right neck pain. No radicular symptoms of pain or paresthesias. Rotation of his neck will cause pain and limits his range of motion. The patient presents with cervical myofascial pain. On clinical exam the patient has tenderness to palpation over the RIGHT trapezius, levator scapulae, and rhomboids. We will schedule the patient for cervical trigger point injections. The patient is presenting with muscular neck pain. We discussed the causes, and the biomechanics with the patient. The patient was recommended to keep the head straight, and avoid flexed forward posture. Also recommendations were given to improve the biomechanics at home and work, along with adjustments with the car seat, and with computer use. 12/31/2024 Myofascial pain (ICD-10 - M79.18) He states he has constant, chronic, right neck pain. No radicular symptoms of pain or paresthesias. Rotation of his neck will cause pain and limits his range of motion. The patient presents with cervical myofascial pain. On clinical exam the patient has tenderness to palpation over the RIGHT trapezius, levator scapulae, and rhomboids. We will schedule the patient for cervical trigger point injections. The patient is presenting with muscular neck pain. We discussed the causes, and the biomechanics with the patient. The patient was recommended to keep the head straight, and avoid flexed forward posture. Also recommendations were given to improve the biomechanics at home and work, along with adjustments with the car seat, and with computer use. 02/06/2025 Cervical radiculopathy (ICD-10 - M54.12) He states he has constant, chronic, right neck pain. Pain travels from cervical neck extending to his right shoulder. The pain will awaken the patient from sleeping. Rotation of his neck to the right, will cause pain and limits his range of motion. The patient is presenting with neck pain. We discussed the causes, and the biomechanics with the patient. The patient was recommended to keep the head straight, and avoid flexed forward posture. Also recommendations were given to improve the biomechanics at home and work, along with adjustments with the car seat, and with computer use. Cervical spine MRI and xrays ordered for evaluation of nerve root compression and joints. 02/06/2025 Myofascial pain (ICD-10 - M79.18) On 12/31/24 we did cervical trigger point injections and the patient reported 0% pain relief. 03/18/2025 Sacroiliitis (ICD-10 - M46.1) The previous therapeutic sacroiliac joint injection provided >80% relief of pain for atleast 3 months and improvement of ADL's. Previously the pain was worse on his left side now the pain is bilateral. That also confirms the diagnosis of sacroiliitis. The patient is interested in repeating the procedure. All the pros and cons of the procedure were discussed with the patient. The risk of infection, bleeding, and pain were discussed with the patient. All questions were answered. The patient wants to proceed with the procedure. The procedure will be completed under fluoroscopy in the office with no sedation. BILATERAL Sacroiliac joint injection was discussed with the patient. Due to patient's symptoms we will schedule the patient for the procedure. All pros and cons of the procedure were discussed with the patient and all questions were answered. The procedure will be completed in the office under fluoroscopy with no sedation. 03/18/2025 Cervical spondylosis (ICD-10 - M47.812) The patient has chronic neck pain symptoms. MRI scan of the cervical spine was reviewed. And he has multilevel cervical spondylosis and stenosis. 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 And the patient has pain on extension of the spine. The patient is not responding to conservative treatment, so we will consider RIGHT C4 C 5 C6 cervical facet joint medial branch block to confirm the diagnosis. The procedure and its pros and cons were discussed with the patient. The patient understands that the procedure will work for a few hours, and the patient will be given a pain diary. If the pain symptoms respond to the diagnostic medial branch block, that will confirm the diagnosis. If the procedure helps the pain, we will consider radio frequency nerve ablation of the medial branches. The oswestry screen was completed with moderately severe disability. He consistently rates his pain 05/23. 03/26/2025 Sacroiliitis (ICD-10 - M46.1) The previous therapeutic sacroiliac joint injection provided >80% relief of pain for atleast 3 months and improvement of ADL's. Previously the pain was worse on his left side now the pain is bilateral. That also confirms the diagnosis of sacroiliitis. The patient is interested in repeating the procedure. All the pros and cons of the procedure were discussed with the patient. The risk of infection, bleeding, and pain were discussed with the patient. All questions were answered. The patient wants to proceed with the procedure. The procedure will be completed under fluoroscopy in the office with no sedation. BILATERAL Sacroiliac joint injection was discussed with the patient. Due to patient's symptoms we will schedule the patient for the procedure. All pros and cons of the procedure were discussed with the patient and all questions were answered. The procedure will be completed in the office under fluoroscopy with no sedation. 04/18/2025 Cervical spondylosis (ICD-10 - M47.812) The patient has chronic neck pain symptoms. MRI scan of the cervical spine was reviewed. And he has multilevel cervical spondylosis and stenosis. 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 And the patient has pain on extension of the spine. The patient is not responding to conservative treatment, so we will consider RIGHT C4 C 5 C6 cervical facet joint medial branch block to confirm the diagnosis. The procedure and its pros and cons were discussed with the patient. The patient understands that the procedure will work for a few hours, and the patient will be given a pain diary. If the pain symptoms respond to the diagnostic medial branch block, that will confirm the diagnosis. If the procedure helps the pain, we will consider radio frequency nerve ablation of the medial branches. The oswestry screen was completed with moderately severe disability. He consistently rates his pain 05/23. 05/07/2025 Cervical spondylosis (ICD-10 - M47.812) The patient has chronic neck pain symptoms. MRI scan of the cervical spine was reviewed. And he has multilevel cervical spondylosis and stenosis. 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 And the patient has pain on extension of the spine. The patient is not responding to conservative treatment, so we will consider RIGHT C4 C 5 C6 cervical facet joint medial branch block to confirm the diagnosis. The procedure and its pros and cons were discussed with the patient. The patient understands that the procedure will work for a few hours, and the patient will be given a pain diary. If the pain symptoms respond to the diagnostic medial branch block, that will confirm the diagnosis. If the procedure helps the pain, we will consider radio frequency nerve ablation of the medial branches. The oswestry screen was completed with moderately severe disability. He consistently rates his pain 7/10. On 04/18/25 we did the right C4 C5 C6 medial branch block with more than 80% pain relief post procedure. 05/14/2025 Cervical spondylosis (ICD-10 - M47.812) The patient has chronic neck pain symptoms. MRI scan of the cervical spine was reviewed. And he has multilevel cervical spondylosis and stenosis. 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 And the patient has pain on extension of the spine. The patient is not responding to conservative treatment. The oswestry screen was completed with moderately severe disability. He consistently rates his pain 7/10. On 04/18/25 we did the right C4 C5 C6 medial branch block with more than 80% pain relief post procedure. Patient presents with cervical spondylosis pain. We did the cervical medial branch blocks with good pain relief. The patient will be a good candidate for cervical radiofrequency nerve ablation of medial branches, for the chronic pain unresponsive to conservative treatment. The procedure details and the pros and cons of the procedure were discussed with the patient. The risks of the procedure including neuritis, bleeding, infection and worsening of the pain was discussed. The patient wants to proceed with the procedure. 06/17/2025 Cervical spondylosis (ICD-10 - M47.812) The patient has chronic neck pain symptoms. He reports that had Right Cervical C4 C5 C6 radiofrequency ablation on 05/14/25 with over 90% pain relief and improvement with his ADL's. On 04/18/25 we did the right C4 C5 C6 medial branch block with more than 80% pain relief post procedure On 05/14/25 Right C4 C5 C6 radio[facility] with over 90[facility] And he has multilevel cervical spondylosis and stenosis. 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 The patient is presenting with neck pain. We discussed the causes, and the biomechanics with the patient. The patient was recommended to keep the head straight, and avoid flexed forward posture. Also recommendations were given to improve the biomechanics at home and work, along with adjustments with the car seat, and with computer use. Plan Of Treatment Pending Test Test Name Order Date MRI : Cervical without Contrast 02/07/20 X ray cervical flexion and extension AP/ Lat 02/06/2025 Insurance Providers Payer Name Payer Address Payer Phone Subscriber Number Group Number Insured Name Patient Relationship to Insured Coverage Start Date Coverage End Date [employer] COMPLETE [address] [address] [place] [address] [id number] JOHN FLOWER Self - patient is the insured Medical (General) History Medical History History ICD Code Type II Diabetes CKD CAD Surgical History Surgery Date(Month/Year) Left TKA 07/2011 Right TKA 01/2011 Left CECILIO 07/2015 Right CECILIO 12/2017 Cardiac stents 08/2019
--- OUTSIDE RECORDS SUMMARY | 2025-09-13 10:54 | XMS_ITS | Data Portability ---
Author Organization [facility] Merry Cli marion [place], [facility] IP Address [address] [place] [address] Assessment Encounter Date Assessment Date Assessment LastModified by Organization Details LastModified Time 01/10/2023 01/10/2023 Pt seen by Latisha Zhou NP and reviewed with Erin Still NP [email or web address] Not available 01/10/2023 10:57:55 Plan of Treatment Reminders Order Date Submit Date Provider Last Modified By Organization Details Last Modified Time Details Appointments None recorded. Lab None recorded. Referral dermatolog ist referral - Please call pt to schedule an appt. Thank you! 2022 023 Miriam Flores MD, [address], [place] [address], [place], [address], 13:12:51 Procedures None recorded. Surgeries None recorded. Imaging XR, foot, 3 or more view - right 2017 018 [facility] (Central Scheduling), [address] [place], [address], 8 17:33:09 Medication Orders prednisone 20 mg tablet 2022 023 [email or web address] [facility], [address] [place] [address], [place], [address], 10:58:10 triamcinol one acetonide 0.5 % topical cream 2022 023 [email or web address] [facility], [address] [place] [address], [place], [address], 3 10:58:10 hydroxyzin e HCl 25 mg tablet 2022 023 [facility], [address], [place], [address], 3 10:58:42 doxycyclin e hyclate 100 mg tablet 2022 023 [facility], [address], [place], [address], 3 10:59:13 dexamethas one sodium phosphate 4 mg/mL injection solution 2022 023 [email or web address] Not available 3 10:16:04 Kenalog 40 mg/mL suspension for injection 2022 023 [email or web address] Not available 3 10:16:15 hydroxyzin e HCl 25 mg tablet 2022 023 [facility], [address], [place], [address], 3 19:09:11 cephalexin 500 mg capsule 2022 023 [facility], [address], [place], [address], 3 19:09:51 doxycyclin e hyclate 100 mg capsule 2017 018 [email or web address] [facility], [address], [place], [address], 3 10:16:07 mupirocin 2 % topical ointment 2017 018 [facility], [address] [place], [address], 18:09:28 Patient TargetsNo targets recorded. Patient Instructions Encounter Date Encounter Id Patient Instructions Last Modified By Organization Details Last Modified Time 06/12/2018 [id number] Keep the wound clean and change the dressing frequently throughout the day Do not immerse the wound in water of any kind. Keep wound clean and covered until fully healed. Take all prescribed antibiotics Follow up or go to the ER if with worsening symptoms or persistent symptoms over 24 or 48hours Follow up with PCP in 2-3days Follow up if fever develops, increased pain, redness spreading beyond original borders, red streaking away from the wound Immersed in warm/hot water which helped with the pain. UTD on Td [email or web address] Not available 06/12/2018 18:10:05 01/04/2023 [id number] - last A1C was 6.7. - Do not drive while taking hydroxyzine. Will prescribe cephalexin for prophylactic Coverage secondary to type 2 diabetes. - Return to clinic for follow-up as needed for any concerns. [email or web address] Not available 01/04/2023 21:10:19 01/10/2023 [id number] dermatitis: care instructions [email or web address] Not available 01/10/2023 10:58:10 Monitor for any increased redness, red streaking, drainage, pain, swelling. If this occurs, return to the clinic! Follow up with [facility] as needed Not available 01/10/2023 11:41:10 Reason for Referral Turn Out Referral for C ontact dermatitis Please call pt to schedule an appt. Thank you! Referring Physician: Erin Still, Family Medicine, Encounter Date: 01/10/2023 Results Created Date Observation Date Name Description Value Unit Range Abnormal Flag Note LastModifiedBy Organization Detail LastModifiedTime 06/12/20 18 XR, foot, 3 or more view - [facility] [address] [address] - - IMAGIN G REPORT ____ NAME: JOHN FLOWER ROOM #: : 1949 ACCOUN T #: [id number] BED #: AGE: 68 Y PATIEN T TYPE: undefi justin ORDER Date/T paula: 18 16:30: 20 SEX: M ORDER #: ACCESS ION #: EXAM DESCRI PTION: 100 [id number] GS XR FOOT 3V UNI Dictat ed By: Alejandro Matos Physic smith: HAILEY HENRIQUEZ Attend ing Physic smith: Primar y Care Physic smith: ____ Right foot three views. [id number] Histor y: Punctu re wound. Stingr ay yuli. Findin gs: No soft tissue abnorm ality. No radiop aque foreig n body. The bone minera l densit y is normal . No fractu re. No degene rative change . Degene rative change s of the interp halang eal joints and first metata rsal phalan geal joint. Impres heriberto: No acute radiog raphic abnorm ality. No radiop aque foreig n body identi fied. Clinic al follow -up is recomm ended, if this patien t remain s clinic ally sympto matic, MRI would be recomm ended for imagin g furthe r evalua tion. Electr onical ly signed by Alejandro moran MD on 2017 16:32: 12. - Page 1 of [address], [place], [address], 06/12/2018 17:50:11 Result Notes Documentation Provider Name and Address Organization Details Recorded Time Xr, Foot, 3 Or More View : - [place] [place] [address] - [phone] - IMAGING REPORT NAME: JOHN FLOWER ROOM #: : 1950 BED #: AGE: 68 Y PATIENT TYPE: undefined ORDER Date/Time:06/12/2018 16:30:20 SEX: M ORDER #: ACCESSION #: EXAM DESCRIPTION: 100 [id number] GS XR FOOT 3V UNI Dictated By: Alejandro Walls Ordering Physician: HAILEY STEEN Attending Physician: Primary Care Physician: Right foot three views.[id number] History: Puncture wound. Stingray yuli. Findings: No soft tissue abnormality. No radiopaque foreign body. The bone mineral density is normal. No fracture. No degenerative change. Degenerative changes of the interphalangeal joints and first metatarsal phalangeal joint. Impression: No acute radiographic abnormality. No radiopaque foreign body identified. Clinical follow-up is recommended, if this patient remains clinically symptomatic, MRI would be recommended for imaging further evaluation. . - Page 1 of 1 [place] [facility] [place] 06/12/2018 17:50:11 Problems No Known Problems Medical Equipment None Reported. Allergies No known drug allergies Medications Name Sig Start Date Stop Date Status Note LastModified by Organization Details LastModified Time carvedilol 6.25 mg tablet TAKE 1 TABLET BY MOUTH EVERY 12 HOURS active Not Available Not Available No t Available doxycycline hyclate 100 mg capsule TAKE 1 CAPSULE BY MOUTH TWICE A DAY FOR 7 DAYS 01/10 completed Not Available Not Available Not Available triamcinolo ne acetonide 0.5 % topical cream APPLY A THIN LAYER TO THE AFFECTED AREA(S) BY TOPICAL ROUTE 2 TIMES PER DAY X10 DAYS active Not Available Not Available No t Available hydrocodone 5 mg-acetamin ophen 325 mg tablet TAKE 1 TABLET BY MOUTH EVERY 12 HOURS NEEDED FOR PAIN.MAX 4 TABS PER DAY active Not Available Not Available No t Available prednisone 20 mg tablet TAKE 1 TABLET BY MOUTH EVERY DAY FOR 3 DAYS active Not Available Not Available No t Available prednisone 5 mg tablet PLEASE SEE ATTACHED FOR DETAILED DIRECTION S active Not Available Not Available No t Available clopidogrel 75 mg tablet TAKE 1 TABLET BY MOUTH DAILY 01/10 completed Not Available Not Available Not Available Kenalog 40 mg/mL suspension for injection Take 40 mg by injection route. 01/10 completed Not Available Not Available Not Available oxycodone-a cetaminophe n 5 mg-325 mg tablet active Not Available Not Available No t Available cephalexin 500 mg capsule TAKE 1 CAPSULE BY MOUTH TWICE A DAY FOR 7 DAYS active Not Available Not Available No t Available hydroxyzine HCl 25 mg tablet TAKE 1 TABLET BY MOUTH THREE TIMES A DAY NEEDED FOR 30 DAYS active Not Available Not Available No t Available aspirin 81 mg tablet Take by oral route. active Not Available Not Available No t Available mupirocin 2 % topical ointment APPLY A SMALL AMOUNT TO THE AFFECTED AREA BY TOPICAL ROUTE 3 TIMES PER DAY FOR 7DAYS active Not Available Not Available No t Available dexamethaso ne sodium phosphate 4 mg/mL injection solution Inject 1 mL by intramusc ular route. 01/10 completed Not Available Not Available Not Available doxycycline hyclate 100 mg tablet TAKE 1 TABLET BY MOUTH TWICE A DAY FOR 10 DAYS active Not Available Not Available No t Available neomycin-po lymyxin-hyd rocort 3.5 mg-10,000 unit/mL-1 % ear drops,susp 01/10 completed Not Available Not Available Not Available Novolog FlexPen U-100 Insulin aspart 100 unit/mL (3 mL) subcutaneou s active Not Available Not Available Not Available rosuvastati n 20 mg tablet TAKE 1 TABLET BY MOUTH EVERYDAY AT BEDTIME active Not Available Not Available No t Available Accu-Chek Suda Plus test strips 01/10 completed Not Available Not Available Not Available Farxiga 5 mg tablet TAKE 1 TABLET BY MOUTH EVERY DAY active Not Available Not Available No t Available TRUEplus Ketone strips USE TO CHECK URINE KETONES IF HAVING NAUSEA OR AND PAIN active Not Available Not Available No t Available Tiffnorbert LuanPen U-100 Insulin 100 unit/mL (3 mL) subcutaneou s active Not Available Not Available Not Available Fluzone High-Dose [id number] (PF) 180 mcg/0.5 mL intramuscul ar syringe TO BE ADMINISTE RED BY A PHARMACIS T 06/12 completed Not Available Not Available Not Available Shingrix (PF) 50 mcg/0.5 mL intramuscul ar suspension, kit 01/10 completed Not Available Not Available Not Available Baqsimi 3 mg/actuatio n nasal spray INSTILL 3 MG INTO THE NOSE EVERY DAY NEEDED FOR SEVERE HYPOGLYCE JOSE active Not Available Not Available No t Available Vitals Date Recorded Body height Body weight Body mass index (BMI) Body temperature Heart rate Respiratory rate Oxygen saturation Oxygen saturation in Arterial blood by Pulse oximetry Systolic And Diastolic Provider Name and Address Organization Details Last Updated DateTime 3 193.04 cm 396247. 02 g 31.6 kg/m2 97.8 [degF] 70 /min 19 /min 97 % 97 % 135/69 mm[Hg] ANGELLA Ren [facility] 3 18:52:37 Date Recorded Body height Body mass index (BMI) Body weight Body temperature Heart rate Respiratory rate Oxygen saturation Oxygen saturation in Arterial blood by Pulse oximetry Systolic And Diastolic Provider Name and Address Organization Details Last Updated DateTime 3 193.04 cm 31.6 kg/m2 330817. 02 g 97 [degF] 63 /min 18 /min 98 % 98 % 115/70 mm[Hg] Nash Wade [facility] [place] 3 10:15:41 Date Recorded Body height Body mass index (BMI) Body weight Body temperature Heart rate Systolic And Diastolic Provider Name and Address Organization Details Last Updated DateTime 8 193.04 cm 32.5 kg/m2 992057. 16 g 98.3 [degF] 72 /min 146/78 mm[Hg] Elle Ugarte RN [facility] 8 16:56:51 Date Recorded Oxygen saturation Oxygen saturation in Arterial blood by Pulse oximetry Provider Name and Address Organization Details Last Updated DateTime 06/12/2018 96 % 96 % Hailey Steen [facility] 06/12/2018 19:41:14 Social History None recorded. Functional Status None recorded. Mental Status None recorded. Family History Nothing Reported. Medical History Condition Response DIABETES Y HIGH CHOLESTEROL Y PATIENT DENIES SIGNIFICANT PAST MEDICAL HISTORY Y HYPERTENSION Y Past Encounters Encounter ID Performer Location Encounter Start Date Encounter Closed Date Diagnosis/Indication Diagnosis SNOMED-CT Code Diagnosis ICD10 Code Diagnosis IMO Codes Diagnosis Note [id number] [facility] [place] [address] [place] [id number] 06/12/2018 16:26:53 06/12/2018 21:13:52 Puncture wound of foot 64622126 S91.331A Poisoning due to sting of sting ray 001832758 T63.511A [id number] ART[facility] [place] [address] [place] [id number] 01/04/2023 18:29:31 01/05/2023 12:06:05 Type 2 diabetes mellitus 86933469 E11.9 Insect bite reaction 402 401995 T63.481A [id number] ADWOA [facility]OW[facility]END [facility] [place] [address] [place] [id number] 01/10/2023 10:00:56 01/10/2023 12:03:08 Contact dermatitis 90100825 L25.9 possibly caused by insect bites; Rx for doxy 100mg BID x 10 days to cover for possible infection, prednisone 20mg x 3 days (pt has diabetes, currently on insulin, has continuous glucose reader); triamcinol one cream and hydroxyzin e refills today; referral to [facility] Health Concerns Section Related Observation LastModified by Organization Detai ls LastModified Time None Recorded Concern Status LastModified by Organization Details LastModified Time None Recorded Advance Directives Directive None Recorded Payers Insurance Date Sequence Insurance Name Policy Number Policy Lopez Covered Member ID Lopez Member ID Guarantor Name 01/10/2023 1 [facility] [id number] John Flower [id number] John Flower Notes Date Note Type Note Provider Name and Address Organization Details Recorded Time 8 text/html Lower Extremity - GeneralReported by PatientHPIFor associated symptoms, patient reportsswellingbut reportsno weakness,no numbness,no tingling,no redness,no warmth, andno fever. For location, patient reportsright foot. For quality, patient reportsachingandsharp. For severity, patient reportsmoderate. For timing, patient reportsacute. For duration, (just prior to arrival). For context, (stung by a stingray). Hailey livingston, [facility] 06/12/2018 19:43:24 3 text/html 72-year-old male presents to clinic with complaint of bug bites to bilateral lower extremities, top of his head, and bilateral upper extremities. Symptoms started 24 hours ago after walking outside. He is not sure what bit him. The rash is pruritic and erythematous indurated hive like welts. Patient does have a PMH of type 2 diabetes. Patient is concerned that he may need antibiotics. ADWOA TOWNSEND NP [address], [place], [address], [facility] 01/04/2023 21:10:39 3 text/html 72 yo male presents to clinic with complains of continue insect bites and itching. Pt. was seen about a week ago for itching bumps on arms, legs, and around the neck. Diagnosed as insect bites but it still having severe itching. RT forearm is very red and starting to bruise from scratching. He did not finish cephalexin nor hydroxyzine hcl. States that the steriod did help. His PCP called in a topical triamcinolone as well and gave no relief. Pt. does have diabetes. ERIN STILL NP [address], [place], [address], [facility] 01/10/2023 11:41:49
--- OUTSIDE RECORDS SUMMARY | 2025-09-13 10:54 | XMS_ITS | Clinical Summary ---
Author Organization [facility] Address [address] [place] [address] Care Team Providers Care Air Bag Stripper Name Role Phone Jhon José MD Primary Care Provider [phone] Source Comments [facility],non-owned Affiliates and Associated Physician Practices is amultiple site organization consisting of ambulatory clinics and hospital sitesin [place], [place], [place] and [place]. This disclosure is being madepursuant to the Care Everywhere program and may not contain all information available regarding this patient. 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 Gender Identity Not on file Sexual Orientation Not on file Plan of Treatment Health Maintenance Due Date Last Done Comments HEPATITIS C SCREENING 09/24/1966 DTAP/TDAP/TD VACCINES (1 - Tdap) 1967 PNEUMOCOCCAL VACCINE 50+ (1 of 1 - PCV) 1998 ZOSTER VACCINE (1 of 2) 1998 Respiratory Syncytial Virus (RSV) Vaccine Pt: or over 60 yrs (1 - 1-dose 75+ series) 2023 DEPRESSION SCREENING 11/14/2024 COVID-19 VACCINE ( - 2023-2 5 season) 2025 INFLUENZA VACCINE (#1) 2025 HEPATITIS B VACCINE Aged Out No longe r eligible based on patient's age to complete this topic HIB VACCINE Aged Out No longer eligi ble based on patient's age to complete this topic HPV VACCINE Aged Out No longer eligi ble based on patient's age to complete this topic MENINGOCOCCAL (Group B) VACC INE SHARED DECISION-MAKING Aged Out No longer eligibl e based on patient's age to complete this topic MENINGOCOCCAL GROUPS A/C/Y/W VACCINE Aged Out No longer eligible b ased on patient's age to complete this topic Insurance MEDICARE [facility] Care Teams Air Bag Stripper Relationship Specialty Start Date End Date Jhon José MD [address] [place] [address] PCP - General 12/02/08
[2025-09-13 12:32] LABS: Alanine Aminotransferase 22 U/L (6-50); Albumin Level 4.4 g/dL (3.5-5.1); Alkaline Phosphatase 75 U/L (38-126); Anion Gap 7 mmol/L (4-12); Aspartate Amino Transferase 79 U/L (17-59); Bilirubin,Total 0.6 mg/dL (0.2-1.3); Blood Urea Nitrogen 31 mg/dL (9-20); Calcium 9.1 mg/dL (8.4-10.2); Carbon Dioxide 29 mmol/L (22-30); Chloride 102 mmol/L (98-107); Estimated Glomerular Filt Rate 46; Glucose 136 mg/dL (65-110); Potassium 4.9 mmol/L (3.4-5.0); Sodium 138 mmol/L (137-145); Total Protein 8.0 g/dL (6.3-8.2)
[2025-09-13 12:38] LABS: Immunoglobulin A 437 mg/dL (70-400); Immunoglobulin G 1416 mg/dL (700-1600)
[2025-09-13 12:56] LABS: Immunoglobulin M 63 mg/dL (40-230)
[2025-09-16 14:08] LABS: Albumin 3.6 g/dL (2.9-4.4); Alpha-1-Globulin 0.2 g/dL (0.0-0.4); Alpha-2-Globulin 0.8 g/dL (0.4-1.0); Gamma Globulin 1.2 g/dL (0.4-1.8)
[2025-09-16 15:09] LABS: Free Lambda Lt Chains, Serum 41.3 mg/L (5.7-26.3); Kappa/Lambda Ratio, Serum 1.01 (0.26-1.65)
== END 2025-09-13 10:24 | disposition home or self-care (01) ==
LOC: ANHLAB 10:24
PROVIDERS: PCP Family Medicine; Visit Provider Internal Medicine Hematology & Oncology
DX: D72.9 Disorder of white blood cells, unspecified (principal)
CPT/HCPCS: 36415; 80053; 82784; 83521; 84155; 84165; 85025